=== PATIENT | female | born 1980 | race Caucasian/White ===

== ENCOUNTER 2018-10-25 22:45 | Emergency (ER) | payer OTHER ==
[~2018-10-25] VITALS: Ht 172.7 cm; Wt 93.2 kg
[2018-10-25] MEDS ORDERED: CYMB60CA3 PO (22:57)
[2018-10-25] MEDS ORDERED: ADDE30CA3 PO (22:57)
[2018-10-25] MEDS ORDERED: XANA0.25 PO (22:57)
[2018-10-25] MEDS ORDERED: AMBI12.52 PO (22:57)
[2018-10-25 23:30] LABS: ABG BASE EXCESS -0.8 (-2.0-2.0); ABG O2 SATURATION 97.1 % (95.0-99.0); ABG PARTIAL PRESSURE CO2 35.8 mmHg (35.0-45.0); ABG PARTIAL PRESSURE O2 85.9 mmHg (75.0-100.0); ABG STANDARD HCO3 23.8 MEQ/L (22.0-26.0); ABG TOTAL CO2 24.1 MEQ/L (22.0-29.0); ABG pH (ARTERIAL) 7.426 UNITS (7.350-7.450)
[2018-10-26 00:18] LABS: BASO # 0.1 10^3/uL (0.0-0.2); BASO % 0.8 % (0.0-1.0); EOS # 0.2 10^3/uL (0.0-0.50); EOS % 2.3 % (0.0-3.0); HEMATOCRIT 42.5 % (36.0-47.0); HEMOGLOBIN 14.5 g/dl (12.0-15.5); LYMPH # 2.8 10^3/uL (1.5-4.5); LYMPH % 36.8 % (24.0-44.0); MEAN CORPUSCULAR HEMOGLOBIN 29.3 pg (27.0-33.0); MEAN CORPUSCULAR HGB CONC 34.1 g/dl (32.0-36.5); MEAN CORPUSCULAR VOLUME 85.9 fl (80.0-96.0); MONO # 0.5 10^3/uL (0.0-0.8); NEUTROPHILS % 52.8 % (36.0-66.0); PLATELET COUNT, AUTOMATED 292 10^3/uL (150-450); RED BLOOD COUNT 4.95 10^6/uL (4.00-5.40); WHITE BLOOD COUNT 7.7 10^3/uL (4.0-10.0)
[2018-10-26 00:33] LABS: BLOOD UREA NITROGEN 18 MG/DL (7-18); CALCIUM LEVEL 9.1 MG/DL (8.5-10.1); CARBON DIOXIDE LEVEL 26 MEQ/L (21-32); CHLORIDE LEVEL 106 MEQ/L (98-107); CPK CREATINE PHOSPHOKINASE 134 U/L (26-192); CREATININE FOR GFR 0.72 MG/DL (0.55-1.30); GLOMERULAR FILTRATION RATE > 60.0 (>60); GLUCOSE, FASTING 94 MG/DL (70-100); MB/CK RELATIVE INDEX 2.31 (< OR =4); SODIUM LEVEL 140 MEQ/L (136-145); TROPONIN I < 0.02 NG/ML (< 0.10)
[2018-10-26] MEDS ORDERED: ISOVUE-370 76% 100ML VIAL (Q9967) As Ordered ONE (00:47)
--- NOTE | 2018-10-26 01:34 | REPVR ---
EXAM: CT Angiography Chest With Contrast EXAM DATE/TIME: 10/26/2018 12:58 AM CLINICAL HISTORY: 38 years old, female; Chest pain TECHNIQUE: Imaging protocol: Axial computed tomographic angiography images of the chest with intravenous contrast using CT angiography protocol. Coronal and sagittal reformatted images were created and reviewed. 3D rendering: MIP reconstructed images were created and reviewed. Radiation optimization: All CT scans at this facility use at least one of these dose optimization techniques: automated exposure control; mA and/or kV adjustment per patient size (includes targeted exams where dose is matched to clinical indication); or iterative reconstruction. Contrast material: iso 370 Contrast volume: 75 ml Contrast route: iv COMPARISON: CR Chest, 2 view PA, Lat 10/25/2018 11:12 PM FINDINGS: Pulmonary arteries: No pulmonary embolism is identified. Aorta: There is no thoracic aortic aneurysm, pseudoaneurysm, penetrating atherosclerotic ulcer, or dissection. Lungs: There is mild dependent atelectasis in both lower lobes. The lungs are otherwise clear. There is no lung consolidation, pulmonary infarct, or mass. No emphysematous changes or interstitial lung disease is noted. The major airways are patent. Pleural space: Normal. No pneumothorax. No pleural effusion. Heart: No cardiomegaly. No pericardial effusion. The ratio of the diameter of the right ventricle to the diameter of the left ventricle measures less than 1, which is within normal limits and there is no evidence for a right ventricular strain. Mediastinum: No mediastinal mass, hemorrhage, or pneumomediastinum is noted. Lymph nodes: Normal. No enlarged lymph nodes. Bones/joints: The imaged bony structures are intact. There is no suspicious osteolytic or osteoblastic lesion. Soft tissues: Unremarkable. IMPRESSION: No acute findings in the chest. No pulmonary embolism. Electronically signed by: Girma Duke On 10/26/2018 01:33:45 AM
--- NOTE | 2018-10-26 02:08 | REP ---
Clinical: Dyspnea . Comparison: None . Technique: PA and lateral. Findings: The mediastinum and cardiac silhouette are normal. The lung moncada are clear and without acute consolidation, effusion, or pneumothorax. The skeletal structures are intact and normal. Impression: 1. No acute cardiopulmonary process. Electronically Signed by Usman Lui MD 10/26/2018 01:59 A
[2018-10-26] MEDS ORDERED: KETOROLAC 30 MG/ML VIAL (J1885) IV ONE (02:15)
[2018-10-26] MEDS ORDERED: ONDANSETRON 4MG/2ML VIAL (J2405) IV ONE (02:30)
[2018-10-26] MEDS ORDERED: KETO10TAB PO (02:38)
[2018-10-26 03:00] VITALS: BP 135/81
--- NOTE | 2018-10-26 05:42 | ECGEPIP ---
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
== END 2018-10-26 03:06 | disposition home or self-care (01) ==
LOC: M ED 22:45
DX: R07.89 Other chest pain (principal); R06.02 Shortness of breath; F41.9 Anxiety disorder, unspecified; G43.909 Migraine, unspecified, not intractable, without status migrainosus; Z86.711 Personal history of pulmonary embolism; Z86.718 Personal history of other venous thrombosis and embolism; Z79.899 Other long term (current) drug therapy; F17.210 Nicotine dependence, cigarettes, uncomplicated
CPT/HCPCS: 71046; 71275; 80048; 82550; 82553; 82803; 84484; 85025; 93005; 93041; 94760; 96374; 96375; 99284; J1885; J2405; Q9967

== ENCOUNTER → 2018-10-30 | Outpatient (REF) | payer OTHER ==
[~2018-10-30] MED LIST: ADDE30CA3 PO; AMBI12.52 PO; BENE1POW5 PO; COLA100C5 PO; CYMB60CA3 PO; KETO10TAB; KETO10TAB PO; MIRA3350 PO; PROBCAP14 PO; XANA0.25 PO
[2018-10-30 14:02] LABS: ALBUMIN 4.3 GM/DL (3.2-5.2); ALT/SGPT 44 U/L (12-78); BILIRUBIN,TOTAL 0.5 MG/DL (0.2-1.0); BLOOD UREA NITROGEN 16 MG/DL (7-18); CARBON DIOXIDE LEVEL 25 MEQ/L (21-32); CHLORIDE LEVEL 104 MEQ/L (98-107); CREATININE FOR GFR 0.83 MG/DL (0.55-1.30); GLOMERULAR FILTRATION RATE > 60.0 (>60); GLUCOSE, FASTING 107 MG/DL (70-100); SODIUM LEVEL 138 MEQ/L (136-145); TOTAL PROTEIN 8.1 GM/DL (6.4-8.2)
== END ==
LOC: M SFHCPLAZ 11:27
PROVIDERS: ATTEND Family Medicine
DX: R10.9 Unspecified abdominal pain (principal); D68.61 Antiphospholipid syndrome
CPT/HCPCS: 80053; 84443; 86146; 86147; 86148; 86849; G0463

== ENCOUNTER 2018-11-01 17:37 | Emergency (ER) | payer OTHER ==
[~2018-11-01] VITALS: Ht 172.7 cm; Wt 95.5 kg
[~2018-11-01 17:37] MED LIST changes: -BENE1POW5 PO; -COLA100C5 PO; -KETO10TAB; -MIRA3350 PO; -PROBCAP14 PO
[2018-11-01] MEDS ORDERED: NS 1,000 ML IV SCH (17:55)
[2018-11-01] MEDS ORDERED: PROMETHAZINE INJ 25 MG/ML VIAL (J2550) IV ONE (18:00)
[2018-11-01 18:34] LABS: BASO # 0.1 10^3/uL (0.0-0.2); BASO % 0.7 % (0.0-1.0); EOS # 0.1 10^3/uL (0.0-0.50); EOS % 1.9 % (0.0-3.0); HEMOGLOBIN 15.1 g/dl (12.0-15.5); LYMPH # 2.5 10^3/uL (1.5-4.5); LYMPH % 33.4 % (24.0-44.0); MEAN CORPUSCULAR HEMOGLOBIN 28.7 pg (27.0-33.0); MEAN CORPUSCULAR HGB CONC 34.3 g/dl (32.0-36.5); MEAN CORPUSCULAR VOLUME 83.7 fl (80.0-96.0); MONO # 0.5 10^3/uL (0.0-0.8); MONO % 6.8 % (0.0-5.0); NEUTROPHILS # 4.2 10^3/uL (1.8-7.7); NEUTROPHILS % 56.9 % (36.0-66.0); PLATELET COUNT, AUTOMATED 324 10^3/uL (150-450); RED BLOOD COUNT 5.26 10^6/uL (4.00-5.40); WHITE BLOOD COUNT 7.4 10^3/uL (4.0-10.0)
[2018-11-01 18:52] LABS: HCG, SERUM QUALITATIVE NEGATIVE (NEGATIVE)
[2018-11-01] MEDS ORDERED: KETOROLAC 30 MG/ML VIAL (J1885) IV ONE (19:00)
[2018-11-01 19:02] LABS: ALBUMIN 4.4 GM/DL (3.2-5.2); ALT/SGPT 38 U/L (12-78); BILIRUBIN,DIRECT < 0.1 MG/DL (0.0-0.2); BILIRUBIN,TOTAL 0.4 MG/DL (0.2-1.0); BLOOD UREA NITROGEN 16 MG/DL (7-18); CALCIUM LEVEL 9.1 MG/DL (8.5-10.1); CARBON DIOXIDE LEVEL 25 MEQ/L (21-32); CHLORIDE LEVEL 105 MEQ/L (98-107); CREATININE FOR GFR 0.94 MG/DL (0.55-1.30); GLOMERULAR FILTRATION RATE > 60.0 (>60); GLUCOSE, FASTING 90 MG/DL (70-100); LIPASE 156 U/L (73-393); SODIUM LEVEL 138 MEQ/L (136-145); TOTAL PROTEIN 7.6 GM/DL (6.4-8.2)
[2018-11-01] MEDS ORDERED: ONDANSETRON 4MG/2ML VIAL (J2405) IV ONE (20:30)
[2018-11-01] MEDS ORDERED: MORPHINE 4 MG/ML 1ML VIAL/SYRINGE (J2270) IV PRN (20:30)
--- NOTE | 2018-11-01 20:34 | REPVR ---
EXAM: US Abdomen Limited, Right Upper Quadrant EXAM DATE/TIME: 11/01/2018 7:44 PM CLINICAL HISTORY: 38 years old, female; Pain; Abdominal pain; Acute; Additional info: Ruq epigastric pain R/O cholecystitis TECHNIQUE: Imaging protocol: Real-time ultrasound of the abdomen with image documentation. Examination was focused on the right upper quadrant. COMPARISON: No relevant prior studies available. FINDINGS: Liver: Mildly increased echotexture. No mass or other focal abnormality. Gallbladder: Normal. No gallstones. There is no gallbladder wall thickening. Common bile duct: Normal. No stones. No dilation. The common bile duct measures 0.3 cm in diameter. Pancreas: Not visualized due to overlying bowel gas. Right kidney: Normal. No mass. No hydronephrosis. Right kidney measures 10.4 x 6.0 x 6.4 cm. IMPRESSION: 1. Mild hepatic steatosis. 2. Pancreas not seen due to overlying bowel gas. Electronically signed by: Nilda Ward On 11/01/2018 20:33:57 PM
[2018-11-01] MEDS ORDERED: ISOVUE-370 76% 100ML VIAL (Q9967) As Ordered ONE (20:52)
[2018-11-01] MEDS ORDERED: GI COCKTAIL 50ML BTL(HYOSCYAMINE/MAALOX/LIDOCAINE VISCOUS)(1:3:1) PO ONE (21:00)
--- NOTE | 2018-11-01 21:20 | REPVR ---
EXAM: CT Abdomen and Pelvis With Contrast EXAM DATE/TIME: 11/01/2018 8:48 PM CLINICAL HISTORY: 38 years old, female; Pain; Abdominal pain; Epigastric; Additional info: Epigastric abd pain TECHNIQUE: Imaging protocol: Axial computed tomography images of the abdomen and pelvis with intravenous contrast. Coronal and sagittal reformatted images were created and reviewed. Radiation optimization: All CT scans at this facility use at least one of these dose optimization techniques: automated exposure control; mA and/or kV adjustment per patient size (includes targeted exams where dose is matched to clinical indication); or iterative reconstruction. Contrast material: ISOVUE 370 Contrast volume: 100 ml Contrast route: IV COMPARISON: GALLBLADDER US 11/01/2018 7:19 PM FINDINGS: Lower thorax: There is mild dependent atelectasis of the lung bases. ABDOMEN: Liver: There is decreased attenuation of the liver consistent with hepatic steatosis. Gallbladder and bile ducts: Normal. No calcified stones. No ductal dilation. Pancreas: Normal. No ductal dilation. Spleen: Normal. No splenomegaly. Adrenals: Normal. No mass. Kidneys and ureters: Normal. No hydronephrosis. Stomach and bowel: There is a prominent amount of stool throughout the colon. Appendix: No evidence of appendicitis. PELVIS: Bladder: The urinary bladder is distended. Reproductive: The uterus is surgically absent. ABDOMEN and PELVIS: Intraperitoneal space: Normal. No free air. No significant fluid collection. Bones/joints: There is moderate disc space narrowing, endplate sclerosis and osteophytosis at the L5/S1 level. There is at least moderate bilateral neural foraminal narrowing. No acute fracture. Soft tissues: Unremarkable. Vasculature: Normal. No abdominal aortic aneurysm. Lymph nodes: Normal. No enlarged lymph nodes. IMPRESSION: 1. No acute findings in the abdomen or pelvis. 2. Hepatic steatosis. 3. Prominent fecal retention in the colon. Electronically signed by: Nilda Ward On 11/01/2018 21:19:49 PM
[2018-11-01 21:45] VITALS: BP 166/92
[2018-11-01] MEDS ORDERED: COLA100C5 PO (21:56)
[2018-11-01] MEDS ORDERED: MAGNESIUM CITRATE 300 ML BTL PO ONE (22:00)
== END 2018-11-01 22:18 | disposition home or self-care (01) ==
LOC: M ED 17:37
DX: K59.00 Constipation, unspecified (principal); F90.9 Attention-deficit hyperactivity disorder, unspecified type; D68.61 Antiphospholipid syndrome; Z79.899 Other long term (current) drug therapy
CPT/HCPCS: 74177; 76705; 80048; 80076; 83690; 84703; 85025; 93041; 96374; 96375; 99284; J1885; J2270; J2405; Q9967

== ENCOUNTER 2018-11-11 13:46 | Emergency (ER) | payer OTHER ==
[~2018-11-11] VITALS: Ht 172.7 cm; Wt 97.2 kg
[~2018-11-11 13:46] MED LIST changes: +COLA100C5 PO
[2018-11-11] MEDS ORDERED: KETO10TAB (13:54)
[2018-11-11] MEDS ORDERED: MIRA3350 PO (13:54)
[2018-11-11] MEDS ORDERED: BENE1POW5 PO (13:54)
[2018-11-11] MEDS ORDERED: PROBCAP14 PO (13:55)
[2018-11-11 14:43] LABS: HEMATOCRIT 43.8 % (36.0-47.0); HEMOGLOBIN 14.8 g/dl (12.0-15.5); MEAN CORPUSCULAR HEMOGLOBIN 28.8 pg (27.0-33.0); MEAN CORPUSCULAR HGB CONC 33.8 g/dl (32.0-36.5); MEAN CORPUSCULAR VOLUME 85.4 fl (80.0-96.0); PLATELET COUNT, AUTOMATED 309 10^3/uL (150-450); RED BLOOD COUNT 5.13 10^6/uL (4.00-5.40); WHITE BLOOD COUNT 7.1 10^3/uL (4.0-10.0)
[2018-11-11 15:00] LABS: BLOOD UREA NITROGEN 16 MG/DL (7-18); CARBON DIOXIDE LEVEL 25 MEQ/L (21-32); CHLORIDE LEVEL 107 MEQ/L (98-107); CREATININE FOR GFR 0.81 MG/DL (0.55-1.30); GLOMERULAR FILTRATION RATE > 60.0 (>60); GLUCOSE, FASTING 89 MG/DL (70-100); POTASSIUM SERUM 4.3 MEQ/L (3.5-5.1); SODIUM LEVEL 138 MEQ/L (136-145)
[2018-11-11] MEDS ORDERED: GOLYTELY SOLN 4000 ML BTL PO ONE (15:15)
[2018-11-11 15:18] VITALS: BP 129/89
--- NOTE | 2018-11-11 15:42 | REP ---
ABDOMINAL SERIES: Supine and erect views of the abdomen demonstrate no evidence of free intraperitoneal air or small bowel obstruction. There is moderate fecal material throughout the colon particularly in the right colon. Phleboliths are seen in the pelvis. Visualized osseous structures appear unremarkable. An accompanying view of the chest demonstrates no acute infiltrate. Heart and mediastinum are within normal limits. IMPRESSION: No free air or obstruction. Moderate fecal retention. Lungs are clear. Electronically Signed by Geoffrey Figueroa MD 11/12/2018 11:01 A
== END 2018-11-11 15:56 | disposition home or self-care (01) ==
LOC: M ED 13:46
DX: K59.00 Constipation, unspecified (principal); Z79.899 Other long term (current) drug therapy

== ENCOUNTER 2019-04-19 12:37 | Day surgery (SDC) | payer OTHER ==
[~2019-04-19] VITALS: Ht 172.7 cm; Wt 99.1 kg
[~2019-04-19 12:37] MED LIST changes: +BENE1POW5 PO; +GNP8.6TA PO; +KETO10TAB; +MIRA3350 PO; +NS 1,000 ML IV SCH; +PROBCAP14 PO; +TUMS500C PO
[2019-04-19] MEDS ORDERED: PROPOFOL 200 MG/20 ML VIAL As Ordered ONE ×2 (13:19→15:21)
[2019-04-19] MEDS ORDERED: fentaNYL 100 MCG/2 ML INJECTION (J3010) As Ordered ONE (13:20)
[2019-04-19] MEDS ORDERED: LIDOCAINE 2% INJ 100 MG/5 ML SDV (FOR ANES.) As Ordered ONE (13:20)
--- NOTE | 2019-04-19 15:41 | ROOR ---
Patient Name: Fallon Hyatt Procedure Date: 04/19/2019 2:54 PM Date of : 1980 Age: 39 Room: [facility] Gender: Female Note Status: Finalized Procedure: Upper GI endoscopy Indications: Dyspepsia Providers: Lucian Reilly MD Referring MD: Belkis Wang Requesting Provider: Medicines: Monitored Anesthesia Care Complications: No immediate complications. Procedure: Pre-Anesthesia Assessment: - Prior to the procedure, a History and Physical was performed, and patient medications and allergies were reviewed. The patient is competent. The risks and benefits of the procedure and the sedation options and risks were discussed with the patient. All questions were answered and informed consent was obtained. Patient identification and proposed procedure were verified by the physician, the nurse and the anesthesiologist in the procedure room. Mental Status Examination: alert and oriented. Airway Examination: normal oropharyngeal airway and neck mobility. Respiratory Examination: clear to auscultation. CV Examination: normal. Prophylactic Antibiotics: The patient does not require prophylactic antibiotics. Prior Anticoagulants: The patient has taken no previous anticoagulant or antiplatelet agents. ASA Grade Assessment: II - A patient with mild systemic disease. After reviewing the risks and benefits, the patient was deemed in satisfactory condition to undergo the procedure. The anesthesia plan was to use monitored anesthesia care (MAC). Immediately prior to administration of medications, the patient was re-assessed for adequacy to receive sedatives. The heart rate, respiratory rate, oxygen saturations, blood pressure, adequacy of pulmonary ventilation, and response to care were monitored throughout the procedure. The physical status of the patient was re-assessed after the procedure. The Endoscope was introduced through the mouth, and advanced to the second part of duodenum. The upper GI endoscopy was accomplished without difficulty. The patient tolerated the procedure well. Findings: The examined esophagus was normal. The Z-line was regular and was found 40 cm from the incisors. Scattered mild inflammation characterized by erythema and granularity was found in the gastric antrum. Biopsies were taken with a cold forceps for Helicobacter pylori testing. Verification of patient identification for the specimen was done by the physician and nurse using the patient's name, date and medical record number. Estimated blood loss was minimal. The duodenal bulb and second portion of the duodenum were normal. Biopsies for histology were taken with a cold forceps for evaluation of celiac disease. Impression: - Normal esophagus. - Z-line regular, 40 cm from the incisors. - Gastritis. Biopsied. - Normal duodenal bulb and second portion of the duodenum. Biopsied. Recommendation: - Patient has a contact number available for emergencies. The signs and symptoms of potential delayed complications were discussed with the patient. Return to normal activities tomorrow. Written discharge instructions were provided to the patient. - High fiber diet. - Continue present medications. - Await pathology results. - Telephone GI clinic for pathology results in 2 weeks. - Return to primary care physician. Lucian Reilly MD Lucian Reilly MD 04/19/2019 3:40:57 PM Electronically signed by Lucian Reilly MD Number of Addenda: 0 Note Initiated On: 04/19/2019 2:54 PM Estimated Blood Loss: Estimated blood loss: none.
--- NOTE | 2019-04-19 15:43 | ROOR ---
Patient Name: Fallon Hyatt Procedure Date: 04/19/2019 2:57 PM Date of : 1980 Age: 39 Room: [facility] Gender: Female Note Status: Finalized Procedure: Colonoscopy Indications: Hematochezia, Constipation Providers: Lucian Reilly MD Referring MD: Belkis Wang Requesting Provider: Medicines: Monitored Anesthesia Care Complications: No immediate complications. Procedure: Pre-Anesthesia Assessment: - Prior to the procedure, a History and Physical was performed, and patient medications and allergies were reviewed. The patient is competent. The risks and benefits of the procedure and the sedation options and risks were discussed with the patient. All questions were answered and informed consent was obtained. Patient identification and proposed procedure were verified by the physician, the nurse and the anesthesiologist in the procedure room. Mental Status Examination: normal. Airway Examination: normal oropharyngeal airway and neck mobility. Respiratory Examination: clear to auscultation. CV Examination: normal. Prophylactic Antibiotics: The patient does not require prophylactic antibiotics. Prior Anticoagulants: The patient has taken no previous anticoagulant or antiplatelet agents. ASA Grade Assessment: II - A patient with mild systemic disease. After reviewing the risks and benefits, the patient was deemed in satisfactory condition to undergo the procedure. The anesthesia plan was to use monitored anesthesia care (MAC). Immediately prior to administration of medications, the patient was re-assessed for adequacy to receive sedatives. The heart rate, respiratory rate, oxygen saturations, blood pressure, adequacy of pulmonary ventilation, and response to care were monitored throughout the procedure. The physical status of the patient was re-assessed after the procedure. The Colonoscope was introduced through the anus and advanced to the terminal ileum, with identification of the appendiceal orifice and IC valve. The colonoscopy was performed without difficulty. The patient tolerated the procedure well. The quality of the bowel preparation was good. The terminal ileum, ileocecal valve, appendiceal orifice, and rectum were photographed. Scope insertion time was 3 minutes. Scope withdrawal time was 8 minutes. The total duration of the procedure was 11 minutes. Findings: The perianal and digital rectal examinations were normal. The terminal ileum appeared normal. Two sessile polyps were found in the ascending colon. The polyps were 4 to 5 mm in size. These polyps were removed with a cold biopsy forceps. Resection and retrieval were complete. Verification of patient identification for the specimen was done by the physician and nurse using the patient's name, date and medical record number. Estimated blood loss was minimal. Non-bleeding external and internal hemorrhoids were found during retroflexion. The hemorrhoids were small. The exam was otherwise normal throughout the examined colon. Impression: - The examined portion of the ileum was normal. - Two 4 to 5 mm polyps in the ascending colon, removed with a cold biopsy forceps. Resected and retrieved. - Non-bleeding external and internal hemorrhoids. Recommendation: - Patient has a contact number available for emergencies. The signs and symptoms of potential delayed complications were discussed with the patient. Return to normal activities tomorrow. Written discharge instructions were provided to the patient. - High fiber diet. - Continue present medications. - Await pathology results. - Repeat colonoscopy in 5-10 years for surveillance based on pathology results. - Telephone GI clinic for pathology results in 2 weeks. - Return to primary care physician. Lucian Reilly MD Lucian Reilly MD 04/19/2019 3:43:39 PM Electronically signed by Lucian Reilly MD Number of Addenda: 0 Note Initiated On: 04/19/2019 2:57 PM Estimated Blood Loss: Estimated blood loss was minimal.
[2019-04-19 15:50] VITALS: BP 112/55
== END 2019-04-19 16:04 | disposition home or self-care (01) ==
LOC: M OPP 12:37
PROVIDERS: ATTEND Internal Medicine Gastroenterology
DX: K92.1 Melena (principal); K59.00 Constipation, unspecified; D12.2 Benign neoplasm of ascending colon; K64.8 Other hemorrhoids; R10.13 Epigastric pain; K29.70 Gastritis, unspecified, without bleeding; F41.9 Anxiety disorder, unspecified; F32.9 Major depressive disorder, single episode, unspecified; Z86.718 Personal history of other venous thrombosis and embolism; Z86.711 Personal history of pulmonary embolism; G43.909 Migraine, unspecified, not intractable, without status migrainosus; G47.30 Sleep apnea, unspecified; Z79.899 Other long term (current) drug therapy
CPT/HCPCS: 43239; 45380; 88305; J3010

== ENCOUNTER → 2019-06-30 | Outpatient (CLI) | payer OTHER ==
[~2019-06-30] MED LIST changes: -NS 1,000 ML IV SCH
[2019-07-02 10:34] LABS: HEPATITIS B SURFACE ANTIBODY NEGATIVE (POSITIVE); HEPATITIS B SURFACE ANTIGEN NEGATIVE (NEGATIVE)
== END ==
LOC: M PLALAB 12:26
PROVIDERS: ATTEND Hospitalist
DX: Z02.0 Encounter for examination for admission to educational institution (principal)

== ENCOUNTER → 2019-12-02 | Outpatient (REF) | payer OTHER | LOC: M SFHCPLAZ 15:14 | DX: R25.3 Fasciculation (principal); E78.5 Hyperlipidemia, unspecified ==

== ENCOUNTER → 2019-12-31 | Outpatient (REF) | payer OTHER ==
[2019-12-31 13:43] LABS: ALBUMIN 4.3 GM/DL (3.2-5.2); ALT/SGPT 31 U/L (12-78); BILIRUBIN,TOTAL 0.6 MG/DL (0.2-1.0); BLOOD UREA NITROGEN 19 MG/DL (7-18); CALCIUM LEVEL 9.2 MG/DL (8.5-10.1); CARBON DIOXIDE LEVEL 25 MEQ/L (21-32); CHLORIDE LEVEL 106 MEQ/L (98-107); CHOLESTEROL LEVEL 242 MG/DL (<200); CHOLESTEROL RISK RATIO 5.761 (<5); CREATININE FOR GFR 0.82 MG/DL (0.55-1.30); FERRITIN 64 NG/ML (8-252); GLOMERULAR FILTRATION RATE > 60.0 (>60); GLUCOSE, FASTING 92 MG/DL (70-100); HDL CHOLESTEROL 42 MG/DL (>40); IRON (FE) 90 UG/DL (50-170); LDL CHOLESTEROL 162 MG/DL (<100); MAGNESIUM LEVEL 2.1 MG/DL (1.8-2.4); NON-HDL-C 200 MG/DL; PERCENT SATURATION 23.6 % (13.2-45.0); POTASSIUM SERUM 4.5 MEQ/L (3.5-5.1); SODIUM LEVEL 138 MEQ/L (136-145); TOTAL IRON BINDING CAPACITY 381 UG/DL (250-450); TOTAL PROTEIN 7.8 GM/DL (6.4-8.2); TRIGLYCERIDES LEVEL 191 MG/DL (<150)
[2019-12-31 13:52] LABS: FOLATE 14.4 NG/ML (>5.4); VITAMIN B12 LEVEL 515 PG/ML (247-911)
== END ==
LOC: M SFHCPLAZ 12:08
DX: R25.3 Fasciculation (principal); E78.5 Hyperlipidemia, unspecified

== ENCOUNTER → 2020-01-17 | Outpatient (CLI) | payer OTHER ==
--- NOTE | 2020-01-21 20:15 | SLEEPCENT ---
DATE OF PROCEDURE: 01/17/2020 ORDERED BY: JOSH Bolaños Nocturnal polysomnography was performed for titration of pressure therapy in this patient with obstructive sleep apnea syndrome. For testing the patient was fit with a ResMed AirFit F20 full face mask of medium size, 4 cm of water pressure were applied to the circuit and the lights were extinguished. 8 hours and 11 minutes of data were reviewed. There were 478 minutes of sleep identified. Sleep latency was short at 0.5 minutes. Rapid eye movement (REM) latency was prolonged at 160 minutes. Sleep architecture improved with evidence of REM rebound. There were four REM cycles noted late in the study. Overall sleep efficiency 98.6%. The electrocardiogram showed a sinus rhythm with an average heart rate of 65 beats per minute. Rate ranged 55-80. EEG showed some EKG bleed through. Normal waveforms were appreciated for awake and sleep. There were no focal events identified. Respiratory events were best palliated with continuous positive airway pressure (CPAP) at a pressure of +7 and remaining measures of sleep physiology were normal. IMPRESSION: Obstructive sleep apnea syndrome (G47.33). RECOMMENDATIONS: Nightly use of pressure therapy 7 cm of water.
== END ==
LOC: M SLEEP 20:00
PROVIDERS: ATTEND Nurse Practitioner Family
DX: G47.33 Obstructive sleep apnea (adult) (pediatric) (principal)

== ENCOUNTER 2020-03-14 09:53 | Emergency (ER) | payer OTHER ==
[~2020-03-14] VITALS: Ht 172.7 cm; Wt 100.3 kg
[2020-03-14] MEDS ORDERED: ASPI81CH33 PO (10:10)
[2020-03-14] MEDS ORDERED: ASPIRIN 81 MG CHEW TABLET PO ONE (10:30)
--- NOTE | 2020-03-14 10:45 | REPVR ---
PROCEDURE INFORMATION: Exam: XR Chest, 1 View Exam date and time: 03/14/2020 10:40 AM Age: 40 years old Clinical indication: Chest pain; Additional info: Dyspnea/cough TECHNIQUE: Imaging protocol: XR of the chest Views: 1 view. COMPARISON: CR Abdomen,Flat Upright,PA CHEST 11/11/2018 2:54 PM FINDINGS: Lungs: Unremarkable. No consolidation. Pleural space: Unremarkable. No pleural effusion. No pneumothorax. Heart/Mediastinum: The cardiomediastinal silhouette is fairly stable in appearance, allowing for differences in technique. Bones/joints: Unremarkable. IMPRESSION: No evidence for acute pulmonary disease. Electronically signed by: Angel Ashton On 03/14/2020 10:45:34 AM
[2020-03-14] MEDS ORDERED: ISOVUE-370 76% 100ML VIAL As Ordered ONE (10:46)
[2020-03-14 10:51] LABS: BASO % 0.6 % (0.0-1.0); EOS # 0.3 10^3/uL (0.0-0.5); HEMOGLOBIN 14.8 g/dl (12.0-15.5); LYMPH # 2.3 10^3/uL (1.5-5.0); LYMPH % 36.5 % (24.0-44.0); MEAN CORPUSCULAR HEMOGLOBIN 28.3 pg (27.0-33.0); MEAN CORPUSCULAR HGB CONC 32.9 g/dl (32.0-36.5); MONO # 0.5 10^3/uL (0.0-0.8); MONO % 7.8 % (0.0-5.0); NEUTROPHILS # 3.2 10^3/uL (1.5-8.5); NEUTROPHILS % 50.8 % (36.0-66.0); PLATELET COUNT, AUTOMATED 307 10^3/uL (150-450); RED BLOOD COUNT 5.23 10^6/uL (4.00-5.40); WHITE BLOOD COUNT 6.3 10^3/uL (4.0-10.0)
[2020-03-14 11:01] LABS: INR 0.99; PROTHROMBIN TIME 13.3 SECONDS (11.8-14.0)
[2020-03-14 11:27] LABS: ALBUMIN 4.4 GM/DL (3.2-5.2); ALT/SGPT 35 U/L (12-78); BILIRUBIN,DIRECT < 0.1 MG/DL (0.0-0.2); BILIRUBIN,TOTAL 0.3 MG/DL (0.2-1.0); LIPASE 179 U/L (73-393); THYROXINE (T4) 8.5 UG/DL (4.5-12.0); TOTAL PROTEIN 7.9 GM/DL (6.4-8.2)
--- NOTE | 2020-03-14 11:27 | REPVR ---
PROCEDURE INFORMATION: Exam: CT Angiography Chest With Contrast Exam date and time: 03/14/2020 10:57 AM Age: 40 years old Clinical indication: Chest pain; Additional info: Sp hysterect; Cp TECHNIQUE: Imaging protocol: Computed tomographic angiography of the chest with intravenous contrast. 3D rendering (Not supervised by radiologist): MIP and/or 3D reconstructed images were created by the technologist. Radiation optimization: All CT scans at this facility use at least one of these dose optimization techniques: automated exposure control; mA and/or kV adjustment per patient size (includes targeted exams where dose is matched to clinical indication); or iterative reconstruction. Contrast material: ISO 370; Contrast volume: 75 ml; Contrast route: INTRAVENOUS (IV); COMPARISON: CT ANGIO CHEST 10/26/2018 12:46 AM FINDINGS: Pulmonary arteries: No pulmonary embolus is identified. Aorta: The thoracic aorta is nonaneurysmal. Lungs: Minor dependent atelectasis is present bilaterally. The lungs are otherwise clear. The central airways appear patent. Pleural space: Unremarkable. No pneumothorax. No pleural effusion. Heart: Unremarkable. No cardiomegaly. No pericardial effusion. Lymph nodes: Unremarkable. No enlarged lymph nodes. Bones/joints: Degenerative changes again involve the spine. Soft tissues: Unremarkable. IMPRESSION: No pulmonary embolus or other acute thoracic disease identified. Electronically signed by: Angel Ashton On 03/14/2020 11:27:40 AM
--- NOTE | 2020-03-14 11:28 | REPVR ---
PROCEDURE INFORMATION: Exam: US Duplex Lower Extremity Veins, Bilateral Exam date and time: 03/14/2020 11:22 AM Age: 40 years old Clinical indication: Other: Chest pain; Additional info: R/O dvt TECHNIQUE: Imaging protocol: Real-time duplex ultrasound of the extremities with 2-D gonzalez scale, color Doppler flow and spectral waveform analysis with image documentation. Complete exam focused on the bilateral lower extremity veins. COMPARISON: No relevant prior studies available. FINDINGS: Right deep veins: Unremarkable. The common femoral, femoral, proximal profunda femoral and popliteal veins are patent without thrombus. Normal Doppler waveforms. Normal compressibility and/or augmentation response. Right superficial veins: Saphenofemoral junction is patent without thrombus. Left deep veins: Unremarkable. The common femoral, femoral, proximal profunda femoral and popliteal veins are patent without thrombus. Normal Doppler waveforms. Normal compressibility and/or augmentation response. Left superficial veins: Saphenofemoral junction is patent without thrombus. Soft tissues: Unremarkable. IMPRESSION: No deep venous thrombus demonstrated in either lower extremity. Electronically signed by: Angel Ashton On 03/14/2020 11:29:05 AM
[2020-03-14 14:09] VITALS: BP 112/72
--- NOTE | 2020-04-02 17:32 | ECGEPIP ---
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
--- NOTE | 2020-04-03 14:05 | ECGEPIP ---
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
== END 2020-03-14 14:12 | disposition home or self-care (01) ==
LOC: M ED 09:53
DX: R07.89 Other chest pain (principal); R06.02 Shortness of breath; M79.661 Pain in right lower leg; M79.662 Pain in left lower leg; Z86.711 Personal history of pulmonary embolism; E78.5 Hyperlipidemia, unspecified; F41.9 Anxiety disorder, unspecified; F17.210 Nicotine dependence, cigarettes, uncomplicated; Z79.899 Other long term (current) drug therapy
CPT/HCPCS: 36415; 71045; 71275; 80047; 80076; 83690; 84436; 84443; 84484; 85025; 85610; 93005; 93041; 93970; 94760; 96374; 96375; 99284; Q9967

== ENCOUNTER 2020-07-26 06:21 | Emergency (ER) | payer OTHER ==
[~2020-07-26] VITALS: Ht 172.7 cm; Wt 102.0 kg
[~2020-07-26 06:21] MED LIST changes: +ASPI81CH33 PO
[2020-07-26] MEDS ORDERED: NAPR-885 PO (06:37)
[2020-07-26] MEDS ORDERED: NS 1,000 ML IV ONE (07:45)
[2020-07-26 08:13] VITALS: O2SAT 96
[2020-07-26 08:26] LABS: BASO % 0.6 % (0.0-1.0); EOS # 0.3 10^3/uL (0.0-0.5); EOS % 4.3 % (0.0-3.0); HEMATOCRIT 43.4 % (36.0-47.0); HEMOGLOBIN 14.2 g/dl (12.0-15.5); LYMPH # 2.3 10^3/uL (1.5-5.0); MEAN CORPUSCULAR HEMOGLOBIN 28.3 pg (27.0-33.0); MEAN CORPUSCULAR HGB CONC 32.7 g/dl (32.0-36.5); MEAN CORPUSCULAR VOLUME 86.5 fl (80.0-96.0); MONO # 0.4 10^3/uL (0.0-0.8); MONO % 6.6 % (0.0-5.0); NEUTROPHILS # 3.4 10^3/uL (1.5-8.5); NEUTROPHILS % 52.3 % (36.0-66.0); PLATELET COUNT, AUTOMATED 296 10^3/uL (150-450); RED BLOOD COUNT 5.02 10^6/uL (4.00-5.40); WHITE BLOOD COUNT 6.5 10^3/uL (4.0-10.0)
--- NOTE | 2020-07-26 08:33 | REP ---
INDICATION: L "leg cramps", h/o DVT COMPARISON: None. TECHNIQUE: Figueroa scale and color Doppler evaluation left lower extremity using linear high frequency transducer. FINDINGS: Ultrasound examination of the left lower extremity deep venous structures from the common femoral vein to the popliteal vein demonstrates normal compressibility flow and wave patterns in response to respiration and augmentation. There is no evidence for deep venous thrombosis. Complex septated collection in the popliteal fossa consistent with Hamilton's cyst measuring 13 x 9 x 12 mm. IMPRESSION: No evidence for deep venous thrombosis. Small complex Hamilton's cyst. <Electronically signed by Usman Lui > 07/26/20 0029
[2020-07-26 08:52] LABS: INR 0.9; PROTHROMBIN TIME 12.3 SECONDS (12.5-14.3)
[2020-07-26 08:56] LABS: RSV AMPLIFICATION NEGATIVE (NEGATIVE)
[2020-07-26 09:02] LABS: ALBUMIN 4.3 GM/DL (3.2-5.2); ALT/SGPT 37 U/L (12-78); BILIRUBIN,DIRECT < 0.1 MG/DL (0.0-0.2); BILIRUBIN,TOTAL 0.3 MG/DL (0.2-1.0); BLOOD UREA NITROGEN 15 MG/DL (7-18); CALCIUM LEVEL 8.9 MG/DL (8.5-10.1); CARBON DIOXIDE LEVEL 25 MEQ/L (21-32); CHLORIDE LEVEL 107 MEQ/L (98-107); CK-MB VALUE MASS < 1.0 NG/ML (<3.6); CPK CREATINE PHOSPHOKINASE 75 U/L (26-192); CREATININE FOR GFR 0.83 MG/DL (0.55-1.30); GLOMERULAR FILTRATION RATE > 60.0 (>60); GLUCOSE, FASTING 103 MG/DL (70-100); LIPASE 139 U/L (73-393); MB/CK RELATIVE INDEX 1.33 (< OR =4); POTASSIUM SERUM 4.2 MEQ/L (3.5-5.1); SODIUM LEVEL 141 MEQ/L (136-145); TOTAL PROTEIN 7.2 GM/DL (6.4-8.2); TROPONIN I < 0.02 NG/ML (< 0.10)
[2020-07-26 09:11] LABS: D-DIMER QUANT 288.29 ng/ml (<500)
--- NOTE | 2020-07-26 09:14 | REP ---
INDICATION: Abdominal Pain COMPARISON: 03/14/2020 TECHNIQUE: PA and lateral. FINDINGS: The mediastinum and cardiac silhouette are normal. The lung moncada are clear and without acute consolidation, effusion, or pneumothorax. The skeletal structures are intact and normal. IMPRESSION: No acute cardiopulmonary process. <Electronically signed by Usman Lui > 07/26/20 0946
[2020-07-26] MEDS ORDERED: ALPRAZolam 0.5 MG TAB PO ONE (10:00)
[2020-07-26] MEDS ORDERED: ISOVUE-370 76% 100ML VIAL As Ordered ONE (10:02)
--- NOTE | 2020-07-26 10:27 | REP ---
INDICATION: R sided CP, h/o PE, mass to right chest wall palpable COMPARISON: 03/14/2020 TECHNIQUE: Axial contrast enhanced images from the thoracic inlet to the upper abdomen using pulmonary embolus technique with multiplanar re-formations. 75 ml Isovue 370 intravenous contrast material administered without complication. This CT examination was performed using the following dose reduction techniques: Automated exposure control, adjustment of mA and/or kv according to the patient's size, and use of iterative reconstruction technique. FINDINGS: Satisfactory enhancement of the pulmonary vasculature is achieved and no filling defects are identified to suggest pulmonary embolus. Further evaluation of the mediastinum demonstrates normal thoracic aorta, heart and pericardium. The bilateral lung moncada are well aerated and clear without consolidation pleural effusion or pneumothorax. Tracheobronchial tree is patent. No nodule or mass lesion is identified. No adenopathy noted. Surrounding musculoskeletal structures intact IMPRESSION: No evidence for pulmonary embolus. No acute mediastinal or pleural parenchymal process. <Electronically signed by Usman Lui > 07/26/20 1024
--- NOTE | 2020-07-26 12:10 | REP ---
INDICATION: palpable lump right chest wall, ttp. COMPARISON: CT chest 07/26/2020. TECHNIQUE: Real-time sonographic evaluation of the anterior right chest wall is performed at the site of a reported palpable abnormality. FINDINGS: No discrete sonographic abnormality is seen. No fluid collection is seen. There is no cystic or solid mass. IMPRESSION: No sonographic evidence of mass or fluid collection at the site of the reported palpable abnormality right anterior chest wall. <Electronically signed by Geoffrey Figueroa > 07/26/20 [id number]
[2020-07-26] MEDS ORDERED: XANA0.25 PO (13:18)
[2020-07-26 13:28] VITALS: BP 133/83
--- NOTE | 2020-07-27 05:20 | ECGEPIP ---
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
== END 2020-07-26 13:34 | disposition home or self-care (01) ==
LOC: M ED 06:21
DX: F41.0 Panic disorder [episodic paroxysmal anxiety] (principal); E78.5 Hyperlipidemia, unspecified; F33.9 Major depressive disorder, recurrent, unspecified; G47.33 Obstructive sleep apnea (adult) (pediatric); Z99.89 Dependence on other enabling machines and devices; Z87.891 Personal history of nicotine dependence
CPT/HCPCS: 71046; 71275; 76604; 80048; 80076; 82550; 82553; 83690; 84484; 85025; 85379; 85610; 87631; 93005; 93041; 93971; 94760; 96360; 99285; Q9967

== ENCOUNTER → 2020-09-01 | Outpatient (CLI) | payer OTHER ==
[~2020-09-01] MED LIST changes: +NAPR-885 PO
--- NOTE | 2020-09-01 14:16 | REPPI ---
INDICATION: BLOODY STOOLS, MUCOUS IN STOOLS, GENERALIZED ABDOMINAL PAIN. COMPARISON: 11/11/2018. TECHNIQUE: KUB study abdomen and pelvis performed. FINDINGS: There is no evidence of bowel obstruction. Moderate fecal material is seen throughout the left colon with a large amount of fecal material in the right colon. No significantly dilated bowel loops are seen. Multiple phleboliths are seen in the left pelvis. Urinary bladder is visualized in the midline of the pelvis and is mildly distended. IMPRESSION: No bowel obstruction. Large amount of fecal material in the right colon. Moderate fecal material in the left colon. <Electronically signed by Geoffrey Figueroa > 09/01/20 [id number]
== END ==
LOC: M PLAIMG 13:55
PROVIDERS: ATTEND Physician Assistant
DX: K92.1 Melena (principal); R10.84 Generalized abdominal pain
CPT/HCPCS: 74018; G0463

== ENCOUNTER → 2020-09-11 | Outpatient (CLI) | payer OTHER ==
--- NOTE | 2020-09-11 11:30 | REP ---
INDICATION: R22.2 MASS OF CHEST WALL,RIGHT. COMPARISON: Comparison chest CT study is reviewed from 26 July 2020. No comparison breast imaging. TECHNIQUE: A skin marker is affixed to the skin at the site of the palpable lump along the right superomedial aspect of the breast/chest wall. Routine views are augmented by magnified focal spot-compression images. Targeted right breast sonography is carried out. 3D tomography is utilized. This mammogram was interpreted with the aid of an FDA-approved computer-aided detection system. FINDINGS: There are mild scattered fibroglandular elements. In the area the palpable lump, the visualized breast tissue is fat replaced. Pectoralis muscle margin is smooth. On CC view, the skin marker is quite posterior against the chest wall. No mammographic abnormality. The Volpara volumetric breast density pattern is b. Targeted ultrasound: Targeted right breast scanning in the area the palpable lump is performed from 12:00 to 1:00. No soft tissue abnormality is seen. No cyst mass or acoustic shadowing is noted. No suspicious ultrasound finding. IMPRESSION: BIRADS/ACR category 1 negative right breast mammographic and sonographic findings. Clinical follow-up is advised. This patient's Tyrer-Cuzick lifetime breast cancer risk assessment score is 20.8%. Patients whose breast cancer risk assessment is greater than 20% merit annual screening breast MRI scanning. RECOMMENDATION: Repeat screening mammography recommended 1 year (for women over 40). Consider screening breast MRI study. Clinical follow-up for breast symptoms. The patient letter being requested is M2. <Electronically signed by Ari Batista > 09/11/20 [id number]
== END ==
LOC: M WHC 09:28
PROVIDERS: ATTEND Physician Assistant
DX: R22.2 Localized swelling, mass and lump, trunk (principal)
CPT/HCPCS: 76642; 77065; G0279

== ENCOUNTER 2020-09-25 13:17 | Emergency (ER) | payer OTHER ==
[~2020-09-25] VITALS: Ht 172.7 cm; Wt 100.1 kg
[2020-09-25] MEDS ORDERED: MAGN1CAP PO (13:31)
--- NOTE | 2020-09-25 14:21 | REP ---
INDICATION: Abdominal Pain COMPARISON: None. TECHNIQUE: Upright view of the chest with supine and upright views of the abdomen and pelvis. FINDINGS: Frontal upright view of the chest demonstrates no acute cardiopulmonary process or free air below the diaphragm to suspect pneumoperitoneum. Supine and upright views of the abdomen and pelvis suggest moderate fecal stasis and should be correlated with physical examination and possible history of constipation. No obstruction or evidence for perforation. No organomegaly. No significant abnormal calcifications. Skeletal structures normal for age. IMPRESSION: Moderate fecal stasis/constipation cannot be excluded. <Electronically signed by Usman Lui > 09/25/20 [id number]
[2020-09-25 14:46] LABS: BASO % 0.5 % (0.0-1.0); EOS # 0.2 10^3/uL (0.0-0.5); EOS % 2.7 % (0.0-3.0); HEMATOCRIT 43.2 % (36.0-47.0); HEMOGLOBIN 14.1 g/dl (12.0-15.5); LYMPH % 34.2 % (24.0-44.0); MEAN CORPUSCULAR HGB CONC 32.6 g/dl (32.0-36.5); MEAN CORPUSCULAR VOLUME 85.9 fl (80.0-96.0); MONO # 0.4 10^3/uL (0.0-0.8); MONO % 6.4 % (2.0-8.0); NEUTROPHILS # 3.3 10^3/uL (1.5-8.5); NEUTROPHILS % 55.9 % (36.0-66.0); PLATELET COUNT, AUTOMATED 292 10^3/uL (150-450); RED BLOOD COUNT 5.03 10^6/uL (4.00-5.40); WHITE BLOOD COUNT 5.9 10^3/uL (4.0-10.0)
--- NOTE | 2020-09-25 14:56 | REP ---
INDICATION: RUQ/epigastric pain COMPARISON: None. TECHNIQUE: Real time gonzalez scale ultrasound examination using curved array transducer. FINDINGS: Liver is normal in contour, size, and echogenicity without focal hepatic lesions identified. Pancreas is incompletely evaluated due to interposed bowel gas. The gallbladder is normal and without gallstones, wall thickening, or pericholecystic fluid. No biliary ductal dilatation is appreciated and the common bile duct measures 2.9 mm diameter. Right kidney is normal in reniform shape without hydronephrosis and measures 11.7 x 5.1 x 5.8 cm. No ascites in the visualized right upper quadrant. IMPRESSION: Normal limited right upper quadrant ultrasound <Electronically signed by Usman Lui > 09/25/20 [id number]
[2020-09-25] MEDS ORDERED: KETOROLAC 30 MG/ML 1ML VIAL IV ONE (15:40)
[2020-09-25 16:03] LABS: ALBUMIN 4.7 GM/DL (3.2-5.2); ALT/SGPT 36 U/L (12-78); AMYLASE 51 U/L (25-115); BILIRUBIN,DIRECT < 0.1 MG/DL (0.0-0.2); BILIRUBIN,TOTAL 0.4 MG/DL (0.2-1.0); BLOOD UREA NITROGEN 11 MG/DL (7-18); CALCIUM LEVEL 9.4 MG/DL (8.5-10.1); CARBON DIOXIDE LEVEL 28 MEQ/L (21-32); CHLORIDE LEVEL 105 MEQ/L (98-107); CK-MB VALUE MASS 1.5 NG/ML (<3.6); CPK CREATINE PHOSPHOKINASE 81 U/L (26-192); CREATININE FOR GFR 0.81 MG/DL (0.55-1.30); GLOMERULAR FILTRATION RATE > 60.0 (>60); GLUCOSE, FASTING 85 MG/DL (70-100); LIPASE 115 U/L (73-393); MB/CK RELATIVE INDEX 1.85 (< OR =4); POTASSIUM SERUM 3.8 MEQ/L (3.5-5.1); SODIUM LEVEL 138 MEQ/L (136-145); TOTAL PROTEIN 8.3 GM/DL (6.4-8.2); TROPONIN I < 0.02 NG/ML (< 0.10)
[2020-09-25] MEDS ORDERED: NS 500 ML IV ONE (16:05)
--- NOTE | 2020-09-25 16:06 | ECGEPIP ---
[facility] - ED Test Date: 2020-09-25 Pat Name: MARYANN LEAVITT Department: Room: - Gender: Female User Experience Manager: CARMELA : 1980 Requested By: LAURA Newsome PA-C Order Number: [id number] Reading MD: Jason Gaxiola Measurements Intervals Beatty Rate: 69 P: 20 MN: 138 QRS: 12 QRSD: 82 T: 68 QT: 396 QTc: 424 Interpretive Statements Normal sinus rhythm POOR R WAVE PROGRESSION SIMILAR TO 07/26/20 Electronically Signed on 09-25-2020 16:06:41 EST by Jason Gxaiola
[2020-09-25] MEDS ORDERED: ISOVUE-370 76% 100ML VIAL As Ordered ONE (16:51)
[2020-09-25] MEDS ORDERED: MORPHINE 4 MG/ML 1ML VIAL/SYRINGE (J2270) IV ONE (17:25)
--- NOTE | 2020-09-25 18:31 | REPVR ---
PROCEDURE INFORMATION: Exam: CT Abdomen And Pelvis With Contrast Exam date and time: 09/25/2020 4:41 PM Age: 40 years old Clinical indication: Abdominal pain; Generalized; Additional info: Umbilical abdominal pain TECHNIQUE: Imaging protocol: Computed tomography of the abdomen and pelvis with contrast. Radiation optimization: All CT scans at this facility use at least one of these dose optimization techniques: automated exposure control; mA and/or kV adjustment per patient size (includes targeted exams where dose is matched to clinical indication); or iterative reconstruction. Contrast material: ISOVUE 370; Contrast volume: 100 ml; Contrast route: INTRAVENOUS (IV); COMPARISON: CT ABD/PEL W/IV CONTRAST ONLY 11/01/2018 8:47 PM FINDINGS: Liver: Mild diffuse fatty infiltration of the liver is present. Gallbladder and bile ducts: Normal. No calcified stones. No ductal dilation. Pancreas: Normal. No ductal dilation. Spleen: Normal. No splenomegaly. Adrenal glands: Normal. No mass. Kidneys and ureters: Normal. No hydronephrosis. Stomach and bowel: Unremarkable. No obstruction. No mucosal thickening. Appendix: No evidence of appendicitis. Intraperitoneal space: Unremarkable. No free air. No significant fluid collection. Vasculature: Unremarkable. No abdominal aortic aneurysm. Lymph nodes: Unremarkable. No enlarged lymph nodes. Urinary bladder: Unremarkable as visualized. Reproductive: Unremarkable as visualized. 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 Soft tissues: Unremarkable. IMPRESSION: 1. Comparison to the previous CT abdomen and pelvis study from 11/01/2018 shows no significant interval change. 2. Mild diffuse fatty infiltration of the liver is present. 3. 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 Electronically signed by: Cristian Rodas On 09/25/2020 18:31:43 PM
[2020-09-25] MEDS ORDERED: ZOFR4TAB16 PO (18:54)
[2020-09-25] MEDS ORDERED: KETO10TAB PO (18:54)
[2020-09-25 19:16] VITALS: BP 136/82
== END 2020-09-25 19:20 | disposition home or self-care (01) ==
LOC: M ED 13:17
DX: R10.84 Generalized abdominal pain (principal); K59.00 Constipation, unspecified; R11.0 Nausea; M25.511 Pain in right shoulder; K76.0 Fatty (change of) liver, not elsewhere classified; M51.37 Other intervertebral disc degeneration, lumbosacral region; M25.78 Osteophyte, vertebrae; E78.5 Hyperlipidemia, unspecified; G43.909 Migraine, unspecified, not intractable, without status migrainosus; Z86.718 Personal history of other venous thrombosis and embolism; G47.33 Obstructive sleep apnea (adult) (pediatric); G89.29 Other chronic pain; M54.5 Low back pain; F41.9 Anxiety disorder, unspecified; F33.9 Major depressive disorder, recurrent, unspecified; Z79.899 Other long term (current) drug therapy
CPT/HCPCS: 74021; 74177; 76705; 80047; 80048; 80076; 81001; 82150; 82550; 82553; 83690; 84484; 85025; 93005; 96361; 96374; 96375; 99284; J1885; J2270; Q9967

== ENCOUNTER → 2020-11-14 | Outpatient (CLI) | payer OTHER ==
[~2020-11-14] MED LIST changes: -GNP8.6TA PO; +GNP8.6TA7 PO; +MAGN1CAP PO; +ZOFR4TAB16 PO
--- NOTE | 2020-11-14 19:09 | REPVR ---
PROCEDURE INFORMATION: Exam: CT Maxillofacial Without Contrast, Sinus Exam date and time: 11/14/2020 6:51 PM Age: 40 years old Clinical indication: Other: Deviated septum; Additional info: Deviated nasal septum TECHNIQUE: Imaging protocol: CT Maxillofacial without contrast. Focus on the sinuses. Axial, coronal and sagittal reformatted images were created and reviewed. Radiation optimization: All CT scans at this facility use at least one of these dose optimization techniques: automated exposure control; mA and/or kV adjustment per patient size (includes targeted exams where dose is matched to clinical indication); or iterative reconstruction. COMPARISON: No relevant prior studies available. FINDINGS: Frontal sinuses: Normal. No air-fluid levels. Ethmoid air cells: Minimal ethmoid mucosal thickening. No air-fluid levels. Sphenoid sinuses: Normal. No air-fluid levels. Maxillary sinuses: Normal. No air-fluid levels. Ostiomeatal units are patent. Nasal cavity/Septum: Mild sigmoid nasal septal deviation. Orbital cavity: Orbits are normal. Globes are unremarkable. Bones/joints: Unremarkable. Soft tissues: Unremarkable. IMPRESSION: Mild sigmoid nasal septal deviation. Electronically signed by: Angel Howe On 11/14/2020 19:08:37 PM
== END ==
LOC: M RAD 18:45
PROVIDERS: ATTEND Specialist
DX: J34.2 Deviated nasal septum (principal); G50.1 Atypical facial pain

== ENCOUNTER → 2020-11-17 | Outpatient (RCR) | payer OTHER | LOC: M PT 10-20 11:02 | PROVIDERS: ATTEND Physician Assistant | DX: M54.2 Cervicalgia (principal); M25.512 Pain in left shoulder; M25.511 Pain in right shoulder ==

== ENCOUNTER → 2021-03-13 | Outpatient (CLI) | payer OTHER ==
[~2021-03-13] MED LIST changes: -GNP8.6TA7 PO; +SENN-111 PO
[2021-03-13 11:11] LABS: HEMOGLOBIN 13.9 g/dl (12.0-15.5); MEAN CORPUSCULAR HEMOGLOBIN 28.4 pg (27.0-33.0); MEAN CORPUSCULAR HGB CONC 33.1 g/dl (32.0-36.5); MEAN CORPUSCULAR VOLUME 85.7 fl (80.0-96.0); PLATELET COUNT, AUTOMATED 335 10^3/uL (150-450); WHITE BLOOD COUNT 5.9 10^3/uL (4.0-10.0)
[2021-03-13 11:41] LABS: ALBUMIN 3.8 GM/DL (3.2-5.2); ALT/SGPT 33 U/L (12-78); BILIRUBIN,TOTAL 0.3 MG/DL (0.2-1.0); BLOOD UREA NITROGEN 14 MG/DL (7-18); CALCIUM LEVEL 8.7 MG/DL (8.5-10.1); CARBON DIOXIDE LEVEL 28 MEQ/L (21-32); CHLORIDE LEVEL 106 MEQ/L (98-107); CHOLESTEROL LEVEL 226 MG/DL (<200); CHOLESTEROL RISK RATIO 6.457 (<5); CREATININE FOR GFR 0.85 MG/DL (0.55-1.30); GLOMERULAR FILTRATION RATE > 60.0 (>60); GLUCOSE, FASTING 99 MG/DL (70-100); HDL CHOLESTEROL 35 MG/DL (>40); LDL CHOLESTEROL 140 MG/DL (<100); NON-HDL-C 191 MG/DL; POTASSIUM SERUM 4.3 MEQ/L (3.5-5.1); SODIUM LEVEL 137 MEQ/L (136-145); TOTAL PROTEIN 7.3 GM/DL (6.4-8.2); TRIGLYCERIDES LEVEL 257 MG/DL (<150)
[2021-03-13 11:54] LABS: TOTAL 25(OH) VITAMIN D 24.8 NG/ML (30.0-100.0)
== END ==
LOC: M PLALAB 08:58
PROVIDERS: ATTEND Physician Assistant
DX: Z00.00 Encounter for general adult medical examination without abnormal findings (principal); E78.5 Hyperlipidemia, unspecified; G47.33 Obstructive sleep apnea (adult) (pediatric)
CPT/HCPCS: 36415; 80053; 80061; 82306; 85027; G0463

== ENCOUNTER → 2022-06-30 | Outpatient (REF) ==
[~2022-06-30] MED LIST changes: -CYMB60CA3 PO; +CYMB60CA4 PO
[2022-06-30 11:05] LABS: RSV AMPLIFICATION NEGATIVE (NEGATIVE)
== END ==
LOC: M LABSMTC 09:20
PROVIDERS: ATTEND Family Medicine
DX: Z20.828 Contact with and (suspected) exposure to other viral communicable diseases (principal)

== ENCOUNTER 2022-07-24 11:29 | Emergency (ER) | payer OTHER ==
[~2022-07-24] VITALS: Ht 172.7 cm; Wt 102.3 kg
[2022-07-24] MEDS ORDERED: MAG100TA PO (11:53)
[2022-07-24] MEDS ORDERED: AMPH1CAP15 PO (11:53)
[2022-07-24] MEDS ORDERED: ONDANSETRON 4MG 2ML VIAL IV ONE (16:15)
[2022-07-24] MEDS ORDERED: MORPHINE 2 MG/ML 1ML VIAL IV ONE (16:15)
[2022-07-24 16:59] LABS: BASO % 0.6 % (0.0-1.0); EOS # 0.2 10^3/uL (0.0-0.5); EOS % 3.2 % (0.0-3.0); HEMATOCRIT 40.9 % (36.0-47.0); HEMOGLOBIN 13.9 g/dl (12.0-15.5); LYMPH # 2.1 10^3/uL (1.5-5.0); LYMPH % 33.8 % (24.0-44.0); MEAN CORPUSCULAR HEMOGLOBIN 28.6 pg (27.0-33.0); MEAN CORPUSCULAR VOLUME 84.2 fl (80.0-96.0); MONO # 0.4 10^3/uL (0.0-0.8); MONO % 6.5 % (2.0-8.0); NEUTROPHILS # 3.5 10^3/uL (1.5-8.5); NEUTROPHILS % 55.6 % (36.0-66.0); PLATELET COUNT, AUTOMATED 298 10^3/uL (150-450); RED BLOOD COUNT 4.86 10^6/uL (4.00-5.40); WHITE BLOOD COUNT 6.3 10^3/uL (4.0-10.0)
[2022-07-24 17:38] LABS: LIPASE 39 U/L (12-53)
[2022-07-24 17:40] LABS: ALBUMIN 4.7 G/DL (3.2-5.2); ALKALINE PHOSPHATASE 74 U/L (46-116); ALT/SGPT 25 U/L (7.0-40); AST/SGOT 23 U/L (<34); BILIRUBIN,DIRECT 0.1 MG/DL (<0.4); BILIRUBIN,TOTAL 0.5 MG/DL (0.3-1.2); BLOOD UREA NITROGEN 14 MG/DL (9-23); CALCIUM LEVEL 9.7 MG/DL (8.5-10.1); CARBON DIOXIDE LEVEL 26 MMOL/L (20-31); CHLORIDE LEVEL 101 MMOL/L (98-107); CREATININE FOR GFR 0.74 MG/DL (0.55-1.30); GLOMERULAR FILTRATION RATE > 60.0 (>58); GLUCOSE, FASTING 86 MG/DL (60-100); POTASSIUM SERUM 4.2 MMOL/L (3.5-5.1); SODIUM LEVEL 137 MMOL/L (136-145); TOTAL PROTEIN 7.9 G/DL (5.7-8.2)
[2022-07-24] MEDS ORDERED: GI COCKTAIL 50ML BTL(HYOSCYAMINE/MAALOX/LIDOCAINE VISCOUS)(1:3:1) PO ONE (18:05)
[2022-07-24] MEDS ORDERED: FAMOTIDINE 20MG/2ML VIAL IVP ONE (18:05)
[2022-07-24 19:41] VITALS: BP 142/90
[2022-07-24] MEDS ORDERED: PEPC1TAB5 PO (19:44)
== END 2022-07-24 20:08 | disposition home or self-care (01) ==
LOC: M ED 11:29
DX: K29.70 Gastritis, unspecified, without bleeding (principal); F41.9 Anxiety disorder, unspecified; F32.A Depression, unspecified; G43.909 Migraine, unspecified, not intractable, without status migrainosus; Z79.899 Other long term (current) drug therapy; Z79.83 Long term (current) use of bisphosphonates; Z79.82 Long term (current) use of aspirin
CPT/HCPCS: 76705; 80048; 80076; 83690; 85025; 96374; 96375; 99284; J2405

== ENCOUNTER → 2022-12-13 | Outpatient (CLI) | payer OTHER ==
[~2022-12-13] MED LIST changes: +AMPH1CAP15 PO; +MAG100TA PO; +PEPC1TAB5 PO; -SENN-111 PO; +SENN-188 PO
[2022-12-13 21:30] LABS: APPEARANCE, URINE HAZY (CLEAR); BACTERIA, URINE AUTO NEGATIVE (NEGATIVE); BILIRUBIN, URINE AUTO NEGATIVE (NEGATIVE); BLOOD, URINE BLOOD NEGATIVE (NEGATIVE); COLOR, URINE YELLOW (YELLOW); GLUCOSE, URINE (UA) AUTO NEGATIVE (NEGATIVE); KETONE, URINE AUTO NEGATIVE (NEGATIVE); LEUKOCYTE ESTERASE, URINE AUTO NEGATIVE (NEGATIVE); MUCUS, URINE SMALL (NEGATIVE); NITRITE, URINE AUTO NEGATIVE (NEGATIVE); PROTEIN, URINE AUTO NEGATIVE (NEGATIVE); RBC, URINE AUTO 0 /HPF (0-3); SPECIFIC GRAVITY URINE AUTO 1.014 (1.002-1.035); SQUAMOUS EPITHELIAL CELL UR AU 1 /HPF (0-6); UROBILINOGEN, URINE AUTO 0.2 mg/dL (0.0-2.0); WBC, URINE AUTO 1 /HPF (0-3)
== END ==
LOC: M RAD 17:40
PROVIDERS: ATTEND Physician Assistant
DX: N39.0 Urinary tract infection, site not specified (principal)

== ENCOUNTER 2023-10-05 02:31 | Emergency (ER) | payer OTHER ==
[~2023-10-05] VITALS: Ht 172.7 cm; Wt 105.4 kg
[2023-10-05] MEDS: ONDANSETRON 4MG 2ML VIAL IV ONE (03:14)
[2023-10-05] MEDS: NS 1,000 ML IV ONE (03:14)
[2023-10-05] MEDS: KETOROLAC 30 MG/ML 1ML VIAL IV ONE (03:15)
[2023-10-05 03:20] LABS: BASO # 0.1 10^3/uL (0.0-0.2); BASO % 0.8 % (0.0-1.0); EOS # 0.3 10^3/uL (0.0-0.5); EOS % 3.7 % (0.0-3.0); HEMATOCRIT 42.5 % (36.0-47.0); HEMOGLOBIN 14.7 g/dl (12.0-15.5); LYMPH # 3.5 10^3/uL (1.5-5.0); LYMPH % 40.4 % (24.0-44.0); MEAN CORPUSCULAR HEMOGLOBIN 29.1 pg (27.0-33.0); MEAN CORPUSCULAR HGB CONC 34.6 g/dl (32.0-36.5); MEAN CORPUSCULAR VOLUME 84.2 fl (80.0-96.0); MONO # 0.6 10^3/uL (0.0-0.8); MONO % 6.7 % (2.0-8.0); NEUTROPHILS # 4.2 10^3/uL (1.5-8.5); NEUTROPHILS % 48.1 % (36.0-66.0); PLATELET COUNT, AUTOMATED 329 10^3/uL (150-450); RED BLOOD COUNT 5.05 10^6/uL (4.00-5.40); WHITE BLOOD COUNT 8.7 10^3/uL (4.0-10.0)
[2023-10-05] MEDS: MORPHINE 4 MG/ML 1ML VIAL IV ONE (03:47)
[2023-10-05 03:49] LABS: LIPASE 60 U/L (12-53)
[2023-10-05 03:51] LABS: ALBUMIN 4.8 G/DL (3.2-5.2); ALKALINE PHOSPHATASE 80 U/L (46-116); ALT/SGPT 27 U/L (7.0-40); AST/SGOT 17 U/L (<34); BILIRUBIN,DIRECT 0.2 MG/DL (<0.4); BILIRUBIN,TOTAL 0.7 MG/DL (0.3-1.2); BLOOD UREA NITROGEN 17 MG/DL (9-23); CALCIUM LEVEL 9.8 MG/DL (8.5-10.1); CARBON DIOXIDE LEVEL 23 MMOL/L (20-31); CHLORIDE LEVEL 106 MMOL/L (98-107); CREATININE FOR GFR 0.73 MG/DL (0.55-1.30); GLOMERULAR FILTRATION RATE > 60.0 (>58); GLUCOSE, FASTING 85 MG/DL (60-100); POTASSIUM SERUM 4.1 MMOL/L (3.5-5.1); SODIUM LEVEL 139 MMOL/L (136-145); TOTAL PROTEIN 7.8 G/DL (5.7-8.2)
[2023-10-05] MEDS ORDERED: ISOVUE-370 76% 100ML VIAL As Ordered ONE (04:32)
[2023-10-05] MEDS: MOM 30ML SUSPENSION UDC PO ONE (06:55)
[2023-10-05] MEDS: FAMOTIDINE 20MG/2ML VIAL IVP ONE (06:55)
[2023-10-05 07:32] LABS: MONO SCRN NEGATIVE (NEGATIVE)
[2023-10-05] MEDS: SUCRALFATE SUSP 1GM/10ML UD PO ONE (08:33)
[2023-10-05] MEDS ORDERED: PEPC1TAB5 PO (08:43)
[2023-10-05] MEDS ORDERED: CARA1TAB6 PO (08:44)
[2023-10-05 09:17] VITALS: BP 138/78; TEMP 98; O2SAT 96
== END 2023-10-05 09:23 | disposition home or self-care (01) ==
LOC: M ED 02:31
DX: R10.9 Unspecified abdominal pain (principal); F90.9 Attention-deficit hyperactivity disorder, unspecified type; F32.A Depression, unspecified; G56.00 Carpal tunnel syndrome, unspecified upper limb; Z79.82 Long term (current) use of aspirin; Z79.810 Long term (current) use of selective estrogen receptor modulators (SERMs); Z79.899 Other long term (current) drug therapy
CPT/HCPCS: 74177; 76705; 80048; 80076; 81001; 83690; 85025; 86308; 87486; 87581; 87633; 87798; 93041; 96361; 96374; 96375; 99285; J1885; J2405; Q9967; S0028

== ENCOUNTER → 2023-11-10 | Outpatient (CLI) | payer OTHER ==
[~2023-11-10] MED LIST changes: +CARA1TAB6 PO
== END ==
LOC: M RAD 11:56
PROVIDERS: ATTEND Emergency Medicine
DX: R10.11 Right upper quadrant pain (principal)
CPT/HCPCS: 78227; A9537

== ENCOUNTER 2023-11-25 12:01 | Day surgery (SDC) | payer OTHER ==
[~2023-11-25] VITALS: Ht 170.2 cm; Wt 101.2 kg
[~2023-11-25 12:01] MED LIST changes: +CHOL50003 PO; +OMEP40CA4 PO; +VITA1CAP20 PO; +ZOLP6.2526 PO
[2023-11-25] MEDS: NS 1,000 ML IV ONE (12:42)
[2023-11-25] MEDS ORDERED: propofoL 200 MG/20 ML VIAL As Ordered ONE (13:30)
[2023-11-25] MEDS ORDERED: MIDAZOLAM INJ 2MG/2ML VIAL As Ordered ONE (13:50)
[2023-11-25 14:25] VITALS: TEMP 98.5
[2023-11-25 14:45] VITALS: BP 125/73; O2SAT 99
== END 2023-11-25 14:56 | disposition home or self-care (01) ==
LOC: M OPP 12:01
PROVIDERS: ATTEND Internal Medicine Gastroenterology
DX: K52.9 Noninfective gastroenteritis and colitis, unspecified (principal); K64.8 Other hemorrhoids; K63.89 Other specified diseases of intestine; Z86.010 Personal history of colon polyps; K64.4 Residual hemorrhoidal skin tags; K44.9 Diaphragmatic hernia without obstruction or gangrene; K29.50 Unspecified chronic gastritis without bleeding; R10.13 Epigastric pain; K21.9 Gastro-esophageal reflux disease without esophagitis; E78.00 Pure hypercholesterolemia, unspecified; G47.30 Sleep apnea, unspecified; Z79.899 Other long term (current) drug therapy; Z79.82 Long term (current) use of aspirin; Z86.711 Personal history of pulmonary embolism; Z86.718 Personal history of other venous thrombosis and embolism; Z87.891 Personal history of nicotine dependence
CPT/HCPCS: 43239; 45380; 88305; J2250

== ENCOUNTER → 2023-12-31 | Outpatient (REF) | LOC: M EMP 09:11 | PROVIDERS: ATTEND Family Medicine | DX: Z11.52 Encounter for screening for COVID-19 (principal) ==

== ENCOUNTER → 2024-10-11 | Outpatient (REF) | payer OTHER | LOC: M LAB REF 10-10 17:40 | PROVIDERS: ATTEND Student in an Organized Health Care Education/Training Program | DX: R19.7 Diarrhea, unspecified (principal) ==

== ENCOUNTER → 2025-04-12 | Outpatient (CLI) | payer OTHER ==
[~2025-04-12] MED LIST changes: -AMBI12.52 PO; +ZOLP12.561 PO
[2025-04-12 15:00] LABS: BASO # 0.1 10^3/uL (0.0-0.2); BASO % 0.9 % (0.0-1.0); EOS # 0.1 10^3/uL (0.0-0.5); EOS % 2.0 % (0.0-3.0); LYMPH # 2.2 10^3/uL (1.5-5.0); LYMPH % 40.4 % (24.0-44.0); MONO # 0.4 10^3/uL (0.0-0.8); MONO % 6.9 % (2.0-8.0); NEUTROPHILS # 2.6 10^3/uL (1.5-8.5); NEUTROPHILS % 49.2 % (36.0-66.0); PLATELET COUNT, AUTOMATED 313 10^3/uL (150-450)
[2025-04-12 15:02] LABS: ALT/SGPT 20 U/L (7.0-40); AST/SGOT 15 U/L (<34); CALCIUM LEVEL 9.5 MG/DL (8.5-10.1); CARBON DIOXIDE LEVEL 24 MMOL/L (20-31); CHLORIDE LEVEL 105 MMOL/L (98-107); CHOLESTEROL LEVEL 236 MG/DL (<200); CHOLESTEROL RISK RATIO 4.64 (<5); CREATININE FOR GFR 0.68 MG/DL (0.55-1.30); GLOMERULAR FILTRATION RATE > 90.0 (>58); LDL CHOLESTEROL 164.2 MG/DL (<100); NON-HDL-C 185.2 MG/DL; POTASSIUM SERUM 4.5 MMOL/L (3.5-5.1); SODIUM LEVEL 139 MMOL/L (136-145); TRIGLYCERIDES LEVEL 105 MG/DL (<150)
[2025-04-12 15:07] LABS: FREE T4 1.02 NG/DL (0.89-1.76); VITAMIN B12 LEVEL 487 PG/ML (211-911)
[2025-04-12 15:09] LABS: TOTAL 25(OH) VITAMIN D 58.9 NG/ML (20.0-100.0)
[2025-04-12 19:47] LABS: ESTIMATED AVERAGE GLUCOSE 94.0 MG/DL (60-110)
== END ==
LOC: M PLALAB 10:39
PROVIDERS: ATTEND Nurse Practitioner Family
DX: Z00.00 Encounter for general adult medical examination without abnormal findings (principal); E55.9 Vitamin D deficiency, unspecified; E11.9 Type 2 diabetes mellitus without complications; Z13.29 Encounter for screening for other suspected endocrine disorder; Z13.0 Encounter for screening for diseases of the blood and blood-forming organs and certain disorders involving the immune mechanism; Z13.228 Encounter for screening for other metabolic disorders